=== PATIENT | female | born 1975 | race Caucasian/White ===

== ENCOUNTER 2021-09-02 12:00 | Emergency (ER) | payer OTHER, SELFPAY ==
[2021-09-02 12:10] VITALS: BP 153/109; PULSE 105; RESP 20; TEMP 36.1; O2SAT 100
--- NOTE | 2021-09-02 12:29 | ECG_ITS ---
Measurements Intervals [place] Rate: 82 P: 20 [place]: 140 QRS: -4 QRSD: 98 T: 40 QT: 370 QTc: 434 Interpretive Statements SINUS RHYTHM BORDERLINE R WAVE PROGRESSION, ANTERIOR LEADS BASELINE ARTIFACT- I, III BORDERLINE ECG Electronically Signed On 09-02-2021 13:07:05 [employer] MGR by Jason Park D.O.
--- NOTE | 2021-09-02 12:31 | ED.GENADULT ---
HPI - General Adult General Chief complaint: Dizziness Stated complaint: dizzy spells & falling Source: patient Mode of arrival: ambulatory Limitations: no limitations History of Present Illness HPI narrative: Val is a 46F with a PMH of HTN, and a mood disorder that presented to the ER with near syncope. Over the last month she has had 5 episodes of nearly passing out with the last one being 5 days ago. During all episodes she has stood up from a sitting position and nearly passed out but never done so. She admits nausea but no vomiting. There was no chest pain, SOB, or palpitations. Related Data Home Medications Medication Instructions Recorded Confirmed cetirizine [Zyrtec] 10 mg PO DAILY 10/09/19 09/02/21 losartan-hydrochlorothiazide 1 tablet PO DAILY 10/09/19 09/02/21 sertraline 20 mg PO DAILY 10/09/19 09/02/21 hydrochlorothiazide 12.5 mg PO DAILY 09/02/21 09/02/21 venlafaxine 100 mg PO DAILY 09/02/21 09/02/21 Allergies Allergy/AdvReac Type Severity Reaction Status Date / Time No Known Allergies Allergy Verified 10/09/19 12:41 Review of Systems Constitutional: Constitutional: Reports no additional constitutional complaints Eyes: Eyes: Reports no additional eye complaints ENT: Reports system reviewed and no additional complaints, except as documented Cardiovascular: Cardiovascular: Reports as per HPI Respiratory: Respiratory: Reports no additional respiratory complaints Gastrointestinal: Gastrointestinal: Reports no additional gastrointestinal complaints Genitourinary: Genitourinary: Reports no additional female genitourinary complaints Musculoskeletal: Musculoskeletal: Reports no additional musculoskeletal complaints Integumentary/Breasts: Skin/Breast: Reports system reviewed and no additional complaints, except as docu Neurologic: Reports as per HPI Psychiatric: Psychiatric: Reports no additional psychiatric complaints Endocrine: Endocrine: Reports no additional endocrine complaints Hematologic/Lymphatic: Hematologic/Lymphatic: Reports no additional hematologic/lymphatic complaints Allergic/Immunologic: Allergic/Immunologic: Reports no additional allergic/immunologic complaints Exam Const: General: no acute distress and alert Orientation/consciousness: patient oriented x3 Limitations: No altered mental status HENMT: Head: normal to inspection Other: normocephalic, atraumatic Eyes: Conjunctivae: conjunctivae normal Pupils: Equal, round and reactive pupils present Neck: Neck: normal visual inspection Chest: Chest palpation & inspection: normal inspection of the chest Resp: Effort & Inspection: normal respiratory effort, not labored and not tachypneic Auscultation: clear to auscultation bilaterally Cardio: Rate: regular rate Rhythm: regular rhythm Heart sounds: no murmurs Skin: General skin exam: normal color Rashes: no rashes Neuro: General: patient oriented x3, moves all extremities and no focal motor deficits Other: 3 beats of nystagmus to the right. Normal finger to nose and rapid alternating movements. Normal head impulse and test of skew tests Extrem: General: normal to inspection Psych: Appearance: grossly normal Mental Status: mental status grossly normal Course Course Emergency Course: Ordered labs and EKG Labs and EKG unremarkable Stark Syncope Risk score: -3 Very low risk [place] syncope score: low risk group She was discharged home to follow up with her PCP. Vital Signs Vital signs: Vital Signs Temperature 96.9 F L 09/02/21 12:10 Pulse Rate 105 H 09/02/21 12:10 Respiratory Rate 20 09/02/21 12:10 Blood Pressure 153/109 H 09/02/21 12:10 Pulse Oximetry 100 09/02/21 12:10 Temperature 96.9 F L 09/02/21 12:10 Pulse Rate 105 H 09/02/21 12:10 Respiratory Rate 20 09/02/21 12:10 Blood Pressure 153/109 H 09/02/21 12:10 Pulse Oximetry 100 09/02/21 12:10 Medical Decision Making Vital Signs Vital Signs: Vital Sig
[2021-09-02 12:49] LABS: Basophils Absolute Auto 0.06 K/mm3 (0.00-0.10); Basophils Percent Auto 0.9 % (0.0-1.0); Eosinophils Absolute Auto 0.14 K/mm3 (0.02-0.50); Eosinophils Percent Auto 2.2 % (1.0-6.0); Hematocrit 44.1 % (35.0-49.0); Hemoglobin 14.3 g/dL (12.0-15.0); Immature Granulocyte Absolute 0.01 K/mm3 (0.00-0.00); Immature Granulocyte Percent A 0.2 % (0.0-0.0); Lymphocytes Absolute Auto 3.23 K/mm3 (1.10-4.50); Lymphocytes Percent Auto 50.1 % (18.0-42.0); Mean Corpuscular HGB Conc 32.4 g/dL (32.0-36.0); Mean Corpuscular Hemoglobin 28.1 pg (27.0-31.0); Mean Corpuscular Volume 86.8 fL (78.0-102.0); Monocytes Absolute Auto 0.48 K/mm3 (0.10-0.90); Monocytes Percent Auto 7.4 % (2.0-11.0); Neutrophils Absolute Auto 2.5 K/mm3 (1.7-7.2); Neutrophils Percent Auto 39.2 % (50.0-70.0); Platelet Count Result 311 K/mm3 (150-420); Red Blood Count 5.08 M/mm3 (4.20-5.40); Red Cell Distribution Width 13.4 % (11.6-14.4); White Blood Count 6.5 K/mm3 (4.8-10.8)
[2021-09-02 12:50] VITALS: BP 151/98; PULSE 88
[2021-09-02 12:55] VITALS: BP 153/107; PULSE 113
[2021-09-02 13:14] LABS: Amphetamine Screen Urine Negative (Negative); Barbiturate Screen Urine Negative (Negative); Benzodiazepines Screen Urine Negative (Negative); Cannabinoid Screen Urine Negative (Negative); Cocaine Screen Urine Negative (Negative); Methadone Screen Urine Negative (Negative); Opiate Screen Urine Negative (Negative); Phencyclidine Screen Urine Negative (Negative)
[2021-09-02 13:15] LABS: Anion Gap 12 mmol/L (8-16); Blood Urea Nitrogen 14 mg/dL (7-18); Calcium 8.5 mg/dL (8.5-10.1); Carbon Dioxide 27 mmol/L (21-32); Chloride 101 mmol/L (98-108); Estimated CRCL calculation 94 ml/min; Estimated Glomerular Filt Rate > 60; Glucose 101 mg/dL (70-99); NT Pro B Type Natriuretic Pept 16 pg/mL (0-125); Osmolality Calculated 290 mOsm/kg (285-295); Potassium 3.7 mmol/L (3.5-5.1); Sodium 140 mmol/L (136-145)
[2021-09-02 13:18] LABS: Thyroid Stimulating Hormone 1.48 uIU/mL (0.36-3.74); Troponin I 4.9 ng/L (0.00-60.4)
[2021-09-02 13:40] VITALS: BP 151/98; PULSE 88; RESP 20; TEMP 37.1; O2SAT 98
== END 2021-09-02 13:40 | disposition home or self-care (01) ==
PROVIDERS: Emergency Provider Family Medicine; PCP Family Medicine
DX: R55 Syncope and collapse (principal); I10 Essential (primary) hypertension; Z79.899 Other long term (current) drug therapy
CPT/HCPCS: 36415; 80048; 80307; 83880; 84443; 84484; 85025; 93005; 99282; 99284

== ENCOUNTER 2022-01-25 15:36 | Emergency (ER) | payer BC, SELFPAY ==
--- NOTE | ~2022-01-25 | CT_ITS ---
EXAMINATION: CT brain wo con DATE: 01/25/2022 17:03 INDICATION: dizziness, HEADACHE, SYNCOPAL EPISODE, HAS KNOWN BRAIN CYST TECHNIQUE: Computed tomography (CT) of the head was performed without intravenous contrast. The mA wa s adjusted according to patient size. Iterative reconstruction technique was employed. The dose-lengt h product was 605.33 mGy-cm. COMPARISON: 11/13/15 FINDINGS: No acute intracranial hemorrhage or extra-axial fluid collection. No hydrocephalus. The right frontal arachnoid cyst is considerably larger, now measuring 7.6 cm x 6.8 cm x 6.4 cm, causing increased midline shift to the left and mass effect on both the right and left lateral ventricles and frontal horns. No vasogenic edema within the brain parenchyma. No acute ischemic infarct. Unremarkable dural venous sinus attenuation. No acute osseous abnormality. Trace left mastoid effusion, otherwise the aerated spaces are clear. IMPRESSION: No acute intracranial process. Enlarging right frontal arachnoid cyst, with increased midline shift a nd local mass effect. Reviewed, dictated and finalized at location K. IMPRESSION: No acute intracranial process. Enlarging right frontal arachnoid cyst, with inc reased midline shift and local mass effect.
--- NOTE | ~2022-01-25 | XR_ITS ---
EXAMINATION: XR chest 1V portable Exam Date/Time: 01/25/2022 16:40 CDT CLINICAL HISTORY: dizziness,RECENT SYNCOPAL EPISODES,TIRED,POOR APPETITE Comparison: None available. RESULT: Lines, tubes, and devices: None. Lungs and pleura: Clear. Cardiomediastinal silhouette: Aortic ectasia, otherwise normal cardiomediastinal silhouette. Other: No acute osseous or upper abdominal finding. IMPRESSION: No acute cardiopulmonary process Reviewed, dictated and finalized at location K.
[2022-01-25 15:41] VITALS: BP 158/112; PULSE 112; RESP 15; TEMP 36.8; O2SAT 97
[2022-01-25 15:45] VITALS: BP 168/122; PULSE 114; RESP 26; O2SAT 99
--- NOTE | 2022-01-25 15:53 | ECG_ITS ---
Measurements Intervals [place] Rate: 116 P: 26 [place]: 112 QRS: -24 QRSD: 105 T: 23 QT: 338 QTc: 471 Interpretive Statements SINUS TACHYCARDIA WITH SHORT CA INTERVAL POOR R WAVE PROGRESSION, ANTERIOR LEADS INFERIOR INFARCT, AGE INDETERMINATE ABNORMAL ECG Electronically Signed On 01-25-2022 16:52:22 CDT by Jason Park D.O.
[2022-01-25 15:59] LABS: Basophils Percent Auto 0.4 % (0.2-1.2); Eosinophils Percent Auto 0.3 % (0-4.4); Hematocrit 48.2 % (37.0-47.0); Hemoglobin 15.7 g/dL (12.0-15.0); Immature Granulocyte Absolute 0.02 K/mm3 (0.00-0.031); Immature Granulocyte Percent A 0.2 % (0-0.5); Lymphocytes Absolute Auto 2.71 K/mm3 (0.9-3.2); Mean Corpuscular HGB Conc 32.6 g/dl (32-36); Mean Corpuscular Hemoglobin 27.8 pg (26-34); Mean Corpuscular Volume 85.3 fl (80-100); Mean Platelet Volume 9.5 fl (7.4-10.4); Monocytes Absolute Auto 0.6 K/mm3 (0.1-0.6); Monocytes Percent Auto 6.5 % (2.6-8.5); Neutrophils Absolute Auto 5.7 K/mm3 (1.3-6.7); Neutrophils Percent Auto 62.6 % (45.5-73.1); Platelet Count Result 323 k/mm3 (150-375); Red Blood Count 5.65 M/mm3 (4.2-5.4); Red Cell Distribution Width 14.7 % (11.5-14.5)
[2022-01-25 16:10] LABS: Alanine Aminotransferase 34 U/L (4-35); Albumin Level 4.3 g/dL (3.5-5.1); Alkaline Phosphatase 50 U/L (38-126); Anion Gap 8 mmol/L (8-16); Aspartate Amino Transferase 38 U/L (14-36); Bilirubin,Total 0.7 mg/dL (0.2-1.3); Blood Urea Nitrogen 13 mg/dL (7-17); Calcium 8.9 mg/dL (8.4-10.2); Carbon Dioxide 25 mmol/L (22-30); Chloride 101 mmol/L (98-107); Estimated CRCL calculation 97 ml/min; Estimated Glomerular Filt Rate > 60; Glucose 111 mg/dL (65-110); Potassium 3.9 mmol/L (3.4-5.0); Sodium 134 mmol/L (137-145)
[2022-01-25 16:13] LABS: INR 1.1; Partial Thromboplastin Time 27.8 SECONDS (22.3-36.8); Prothrombin Time 13.7 Seconds (11.1-14.7)
[2022-01-25 16:45] VITALS: BP 137/106; PULSE 100; RESP 23; O2SAT 100
[2022-01-25 17:27] LABS: D Dimer 0.34 ug/mL (<0.48)
--- NOTE | 2022-01-25 17:34 | ED.DIZZY ---
HPI - Dizziness General Chief Complaint: Dizziness Stated Complaint: Syncopal Episodes Time Seen by Provider: 01/25/22 16:13 Source: RN notes reviewed History of Present Illness HPI Narrative: Patient presents emergency department from home for dizziness. Patient states that she was walking today when she suddenly became very dizzy states that for like the room was spinning felt she is going to pass out at that time she had to lay down on the ground but did not lose consciousness. She states dizziness is improved at this time while sitting but is worsened with getting up and ambulating she denies any numbness or tingling to the extremities she denies any fevers or chills chest pain shortness of breath abdominal pain nausea vomiting or any other symptoms. States she does have a history of an arachnoid cyst that was diagnosed when she lived in [place] but has not had any follow-up Related Data Home Medications Medication Instructions Recorded Confirmed losartan-hydrochlorothiazide 1 tablet PO DAILY 10/09/19 09/02/21 venlafaxine 100 mg PO DAILY 09/02/21 09/02/21 Allergies Allergy/AdvReac Type Severity Reaction Status Date / Time No Known Allergies Allergy Verified 01/25/22 16:04 Review of Systems Review of Systems: Gen.: Denies fevers or chills Eyes: Denies eye pain or visual change ENT: Denies congestion Respiratory: Denies shortness of breath or cough CV: Denies chest pain or palpitations GI: Denies abdominal pain nausea, emesis or diarrhea Musculoskeletal: Denies back pain or muscle pain Neuro: See HPI Skin: Denies rash Except as documented, all other systems reviewed and negative [facility] Past Medical History Medical History (Updated 01/25/22 @ 17:36 by Chuy Rodriguez DO) Arachnoid cyst Social History Social History (Updated 01/25/22 @ 17:35 by Chuy Rodriguez DO) Smoking status: Never smoker Exam Narrative: APPEARANCE: No acute distress, nontoxic, resting in bed HEENT: Normocephalic, atraumatic, OMM, TMs clear bilaterally EYES: PERRL, EOMI NECK: Supple, nontender, full range of motion without pain, no meningismus RESPIRATORY: No respiratory distress, clear to auscultation bilaterally with no rhonchi wheezing or rales CARDIOVASCULAR: RRR s murmur ABDOMINAL: Soft, nontender, nondistended MUSCULOSKELETAL: Moves all extremities. No clubbing, cyanosis or edema. NEURO: A and O ?3, following commands, speech normal, no facial t,muscle strength 5 out of 5 bilateral upper and lower extremities SKIN:: Warm, dry. Normal Color PSYCHIATRIC: Normal affect/mood Course Course Emergency Course: Discussed with patient arachnoid cyst she says diagnosed when she lived in [place] and she is had no follow-up patient had imaging in 2019 that shows increasing size since then Called discussed with neurosurgery at [facility] recommend transfer to the ER Patient accepted at [facility] by Dr. Marte Vital Signs Vital signs: Vital Signs Temperature 98.2 F 01/25/22 15:41 Pulse Rate 112 H 01/25/22 15:41 Respiratory Rate 15 01/25/22 15:41 Blood Pressure 158/112 H 01/25/22 15:41 Pulse Oximetry 97 01/25/22 15:41 Temperature 98.2 F 01/25/22 15:41 Pulse Rate 104 H 01/25/22 17:58 Respiratory Rate 24 H 01/25/22 17:58 Blood Pressure 159/105 H 01/25/22 17:58 Pulse Oximetry 99 01/25/22 17:58 MDM - Dizziness Lab Data Result diagrams: 01/25/22 15:55 01/25/22 15:55 Labs: Lab Results 01/25/22 01/25/22 01/25/22 Range/Units 15:55 15:55 15:55 WBC 9.0 (4.5-10.0) K/mm3 RBC 5.65 H (4.2-5.4) M/mm3 Hgb 15.7 H (12.0-15.0) g/dL Hct 48.2 H (37.0-47.0) % MCV 85.3 (80-100) fl MCH 27.8 (26-34) pg MCHC 32.6 (32-36) g/dl RDW 14.7 H (11.5-14.5) % Plt Count 323 (150-375) k/mm3 MPV 9.5 (7.4-10.4) fl Immature Gran % (Auto) 0.2 (0-0.5) % Neut % (Auto) 62.6 (45.5-73.1) % Lym
[2022-01-25 17:35] LABS: Troponin I < 0.012 ng/mL (0.000-0.034)
--- NOTE | 2022-01-25 17:40 | PC.NURSE ---
house sup notified of bls transfer to [facility] evon eta 1hr
[2022-01-25] MEDS: SODIUM CHLORIDE 0.9% IV 1,000 ML 999 ML IV CONT (17:45)
[2022-01-25 17:58] VITALS: BP 159/105; PULSE 104; RESP 24; O2SAT 99
[2022-01-25 18:31] VITALS: BP 142/102; PULSE 92; RESP 24; O2SAT 98
== END 2022-01-25 19:25 | disposition short-term general hospital (02) ==
PROVIDERS: Emergency Provider Emergency Medicine; PCP Family Medicine
DX: G93.0 Cerebral cysts (principal); R42 Dizziness and giddiness
CPT/HCPCS: 36415; 70450; 71045; 80053; 84484; 85025; 85380; 85610; 85730; 93005; 96360; 99285; J7030

== ENCOUNTER 2022-02-04 14:39 | Emergency (ER) | payer BC, SELFPAY ==
--- NOTE | ~2022-02-04 | XR_ITS ---
EXAMINATION: XR chest 2V DATE: 02/04/2022 15:18 INDICATION: Midsternal chest pain TECHNIQUE: PA and lateral views of the chest are obtained. COMPARISON: 01/25/2022 FINDINGS: The lungs are free of acute opacities. There is no pleural effusion or pneumothorax. The ca rdiomediastinal silhouette is normal. There is mild thoracic spondylosis. IMPRESSION: 1. No acute cardiopulmonary abnormality. Reviewed, dictated and finalized at location A.
--- NOTE | 2022-02-04 14:40 | ECG_ITS ---
Measurements Intervals [place] Rate: 116 P: 31 [place]: 137 QRS: -23 QRSD: 97 T: 41 QT: 322 QTc: 449 Interpretive Statements SINUS TACHYCARDIA BORDERLINE R WAVE PROGRESSION, ANTERIOR LEADS INFERIOR INFARCT, AGE INDETERMINATE ABNORMAL ECG Electronically Signed On 02-04-2022 14:50:22 CDT by Jason Park D.O.
[2022-02-04 14:48] VITALS: BP 147/107; PULSE 135; RESP 17; TEMP 36.6; O2SAT 97
[2022-02-04 14:59] LABS: Basophils Absolute Auto 0.1 K/mm3 (0.0-0.1); Basophils Percent Auto 0.6 % (0.2-1.2); Eosinophils Absolute Auto 0.1 K/mm3 (0-0.3); Hematocrit 45.7 % (37.0-47.0); Hemoglobin 14.6 g/dL (12.0-15.0); Immature Granulocyte Absolute 0.02 K/mm3 (0.00-0.031); Immature Granulocyte Percent A 0.2 % (0-0.5); Lymphocytes Absolute Auto 4.61 K/mm3 (0.9-3.2); Lymphocytes Percent Auto 49.8 % (18.3-44.2); Mean Corpuscular HGB Conc 31.9 g/dl (32-36); Mean Corpuscular Hemoglobin 27.3 pg (26-34); Mean Corpuscular Volume 85.6 fl (80-100); Mean Platelet Volume 9.7 fl (7.4-10.4); Monocytes Absolute Auto 0.6 K/mm3 (0.1-0.6); Monocytes Percent Auto 6.8 % (2.6-8.5); Neutrophils Absolute Auto 3.9 K/mm3 (1.3-6.7); Neutrophils Percent Auto 41.6 % (45.5-73.1); Platelet Count Result 326 k/mm3 (150-375); Red Blood Count 5.34 M/mm3 (4.2-5.4); White Blood Count 9.3 K/mm3 (4.5-10.0)
[2022-02-04 15:17] LABS: Alanine Aminotransferase 50 U/L (6-35); Albumin Level 4.5 g/dL (3.5-5.1); Alkaline Phosphatase 55 U/L (38-126); Anion Gap 8 mmol/L (8-16); Aspartate Amino Transferase 53 U/L (14-36); Bilirubin,Total 0.5 mg/dL (0.2-1.3); Blood Urea Nitrogen 11 mg/dL (7-17); Calcium 8.7 mg/dL (8.4-10.2); Carbon Dioxide 27 mmol/L (22-30); Chloride 100 mmol/L (98-107); Estimated CRCL calculation 96 ml/min; Estimated Glomerular Filt Rate > 60; Glucose 109 mg/dL (65-110); Lipase 55 U/L (23-300); Potassium 3.3 mmol/L (3.4-5.0); Sodium 135 mmol/L (137-145)
[2022-02-04 15:20] LABS: Prothrombin Time 13.1 Seconds (11.1-14.7)
[2022-02-04 15:21] LABS: Partial Thromboplastin Time 26.8 SECONDS (22.3-36.8)
[2022-02-04 15:29] LABS: Troponin I < 0.012 ng/mL (0.000-0.034)
[2022-02-04 15:30] VITALS: BP 142/116; PULSE 117; RESP 18; O2SAT 98
[2022-02-04 15:31] VITALS: BP 142/116; PULSE 113; RESP 24
[2022-02-04 15:32] VITALS: PULSE 117; RESP 26
--- NOTE | 2022-02-04 16:22 | ED.CHESTPAIN ---
HPI - Chest Pain General Chief Complaint: Chest Pain Stated Complaint: CP Time Seen by Provider: 02/04/22 16:18 Source: patient, RN notes reviewed and old records reviewed Mode of arrival: ambulatory Limitations: no limitations History of Present Illness HPI narrative: Patient is 47 years old white female came to the emergency room with intermittent central chest pain started last night, at rest, last up to 2 hours then go away. Patient denies aggravating or relieving factors. History of depression used to be on Effexor which is stopped 48 hours ago and started on sertraline. Patient quit smoking 1 week ago. Patient had arachnoid cyst removed January 27 and got discharged from the hospital 5 days ago. Patient feels he cannot take deep breath. Have trouble sleeping and severely anxious and depressed lately. She denies any fever, chills, nausea, vomiting, diarrhea, constipation, or headache History of hypertension, and depression. No family history of coronary artery disease Related Data Home Medications Medication Instructions Recorded Confirmed hydrochlorothiazide 02/04/22 hydrocodone-acetaminophen tablet 02/04/22 levetiracetam PO 02/04/22 losartan 02/04/22 ondansetron 02/04/22 sertraline mg 02/04/22 02/04/22 Allergies Allergy/AdvReac Type Severity Reaction Status Date / Time No Known Allergies Allergy Verified 02/04/22 14:51 Review of Systems Review of Systems: All systems reviewed & are unremarkable except as noted in HPI and below PMFSH Past Medical History Medical History Arachnoid cyst Social History Social History Smoking status: Never smoker Exam Narrative: General appearance: Well-developed, well-nourished Skin: Normal color Head: Multiple newton across the forehead status post craniotomy Eyes: Clear conjunctiva ENT: Oropharynx normal, ears normal, nose normal Neck: Supple, nontender Chest and respiratory: Airway patent, no respiratory distress, no accessory muscle use diffuse chest tenderness including depressed, patient reports that she is about to get her menstrual cycle no bruises, no swelling, no mass, no rash Heart: Regular rate/rhythm Abdomen: Soft, nontender, no organomegaly, quiet bowel sounds Vascular: Normal peripheral pulses, normal capillary refill. Musculoskeletal: Normal range of motion, nontender back Neurologic: Alert and oriented ?3, INPATIENT CODER is normal as tested, no gross motor deficit Course Course Emergency Course: Work-up did not show any significant finding to explain patient condition. Anxiety related symptoms is my concern. Vital Signs Vital signs: Vital Signs Temperature 36.6 C 02/04/22 14:48 Pulse Rate 135 H 02/04/22 14:48 Respiratory Rate 17 02/04/22 14:48 Blood Pressure 147/107 H 02/04/22 14:48 Pulse Oximetry 97 02/04/22 14:48 Temperature 36.6 C 02/04/22 14:48 Pulse Rate 89 02/04/22 17:57 Respiratory Rate 18 02/04/22 17:57 Blood Pressure 139/99 H 02/04/22 16:47 Pulse Oximetry 98 02/04/22 17:57 MDM - Chest Pain Lab Data Result diagrams: 02/04/22 14:54 02/04/22 14:54 Labs: Lab Results 02/04/22 02/04/22 02/04/22 Range/Units 14:53 14:54 14:54 WBC 9.3 (4.5-10.0) K/mm3 RBC 5.34 (4.2-5.4) M/mm3 Hgb 14.6 (12.0-15.0) g/dL Hct 45.7 (37.0-47.0) % MCV 85.6 (80-100) fl MCH 27.3 (26-34) pg MCHC 31.9 L (32-36) g/dl RDW 14.0 (11.5-14.5) % Plt Count 326 (150-375) k/mm3 MPV 9.7 (7.4-10.4) fl Immature Gran % (Auto) 0.2 (0-0.5) % Neut % (Auto) 41.6 L (45.5-73.1) %
[2022-02-04 16:45] LABS: D Dimer 0.39 ug/mL (<0.48)
[2022-02-04 16:47] VITALS: BP 139/99; PULSE 79; RESP 18; O2SAT 98
--- NOTE | 2022-02-04 17:50 | PC.NURSE ---
Sister, Hopkins [phone]
[2022-02-04 17:57] VITALS: PULSE 89; RESP 18; O2SAT 98
[2022-02-04 18:22] LABS: Troponin I < 0.012 ng/mL (0.000-0.034)
== END 2022-02-04 22:58 | disposition home or self-care (01) ==
PROVIDERS: Emergency Provider Emergency Medicine; PCP Family Medicine
DX: F41.9 Anxiety disorder, unspecified (principal); F32.9 Major depressive disorder, single episode, unspecified; Z79.891 Long term (current) use of opiate analgesic; Z98.890 Other specified postprocedural states
CPT/HCPCS: 36415; 71046; 80053; 83690; 84484; 85025; 85380; 85610; 85730; 93005; 99284

== ENCOUNTER 2022-03-19 15:30 | Outpatient (RCR) | payer BC, SELFPAY ==
--- NOTE | 2022-02-18 09:41 | OTOPEVAL ---
OCCUPATIONAL THERAPY INITIAL EVALUATION REPORT AND DISCHARGE SUMMARY 02/18/22 Patient referred to outpatient OT s/p arachnoid cyst drainage 01/27/22. At this time she is functioning independently with ADLs, has intact and symmetrical UE strength, and intact and symmetrical functional coordination. No further skilled OT is indicated at this time. Thank you for referring Val Sanchez to [facility]. Please review, sign, date and return this D/C Note SHAYY. I agree with and certify that the following plan of care is medically necessary. Referring Physician Date Referring Provider: Shadi Fleming MD *OT Outpatient Evaluation Start: 02/18/22 08:35 Therapy Assessment Status Assessment Status Assessment Status Evaluation Outpatient Past Medical History Past Medical History Source of Past Medical History Recalled from Previous Visit, Confirmed with Patient/Family Neurological History Hx Neurologic Surgery Yes: 01/27/22 brain cyst drainage Hx Seizures Yes Cardiovascular History Hx Hypertension Yes Musculoskeletal History Hx Back Injury Yes Reproductive History Hx Tubal Ligation Yes Psychosocial History Hx Anxiety Yes Hx Depression Yes Evaluation Information Problem Diagnosis Deconditioning s/p arachnoid cyst Onset 01/27/22 Subjective Information Patient states she had a cyst Query Text:As Reported By Patient/ in her brain that was causing Family progressive LE weakness, seizures, and cognitive/ emotional changes. She had the cyst drained ~3 weeks ago. She discharged home from the hospital with her 2 kids. She reports her biggest deficits are dizziness and her balance that restrict her ability to do stairs and carry laundry. Prior Level of Function Activity Level (Last 3 Months) Activity of Daily Living Ability Independent Indoor/Home Mobility Independent Community Mobility Independent Stairs Ability Independent Functional Cognition (Planning, Shopping Independent , Taking Medications) Cooking Yes Cleaning Yes Laundry Yes Home Setting Home Type Condo/Duplex/Townhouse, Multiple Levels Environmental Barriers Railing, Ascend Right,Stairs, Greater than 4 Living Situation With Adult Child Mobility Assistive Devices (Used Last 3 None,Walker, Wh
--- NOTE | 2022-02-18 11:33 | PTOPEVAL ---
PHYSICAL THERAPY INITIAL EVALUATION. Thank you for referring Val Sanchez to [facility].? The patient is scheduled to be seen for therapy? 2x/week for 4 weeks. Please review, sign, date and return this plan of care SHAYY. I agree with and certify that the following plan of care is medically necessary. Referring Physician Date Attending Provider: Shadi Fleming MD *PT Outpatient Evaluation Start: 02/18/22 Evaluation Information Diagnosis Deconditioning s/p arachnoid cyst Onset 01/27/22 Subjective Information Pt had a arachnoid cyst Query Text:As Reported By Patient/ removed on 01/27/22. She states Family some of her balance deficits are due to the seizure medication she is on. She states her biggest concerns is balance and dizziness, she states she had this before the surgery but it has progressively gotten worse since. She has some dizziness that turned out to be seizures but states she has 2 different types of dizziness. She is unsure if this is vertigo or not. She states occasionally her legs feel really weak. She does has a history of low back pain. Pt states she walks intermittently without her walker at home, she has been able to walk around the store with her walker but is completely exhausted after this. Pt states she is pretty inactive at baseline due to chronic depression. Pain Assessment Self Report Pain Assessment Head, Frontal Reported Pain Level 2 Lower Extremity Range of Motion General Lower Extremity Range of Motion WFL/Left,WFL/Right Lower Extremity Muscle Strength Testing General Lower Extremity Strength WFL/Left,WFL/Right Gross Lower Extremity Strength BLE grossly 4/5 - unable to formally test hip abductors, extensors due to inability to lay flat or lay supine Balance Assessment Bernstein Balance Assessment BERNSTEIN Balance Evaluation Total Score (/56 Comments R tandem stance 6s L tandem stance 10
--- NOTE | 2022-03-03 10:07 | PCPTNOTE ---
Patient called & cancelled scheduled appointment this date due to no ride.
--- NOTE | 2022-03-10 09:35 | PCPTNOTE ---
Patient called & cancelled scheduled appointment this date due to no transportation.
--- NOTE | 2022-03-19 15:59 | PTOPEVAL ---
*PT Outpatient Evaluation Start: 02/18/22 Lower Extremity Muscle Strength Testing Reason Not Measured WFL/Left,WFL/Right Gross Lower Extremity Strength BLE grossly 4+/5 to 5/5 - unable to formally test hip abductors, extensors due to inability to lay flat or lay supine Balance Assessment BERNSTEIN Balance Evaluation Total Score 49/56 Comments BERNSTEIN score initially R tandem stance 30s - test stopped L tandem stance 30s - test stopped R single leg stance <3 L single leg stance <2 Time Up Go (TUG) Comments Initially: 24s w/o AD 03/19/22: 10s w/o AD 5 Time Sit to Stand 5 Time Sit to Stand Comments Initially: 20s, without the Query Text:Normative Data: If Greater use of UEs Than 15 Seconds, 74% Increase Risk for 03/19/22: 13s, without the use Recurrent Falls of UEs Gait Assessment Ambulation Assistive Devices None 2 Minute Walk Total Distance Walked (feet) 475 2 Minute Walk Gait Speed Score (feet/sec) 3.95 2 Minute Walk Test Comments Initially: 220ft with rollator 03/19/22: 475ft without AD
--- NOTE | 2022-03-19 16:13 | PTOPEVAL ---
PHYSICAL THERAPY PROGRESS REPORT AND DISCHARGE SUMMARY. Thank you for referring Val Sanchez to [facility].? The patient is to be discharged from skilled physical therapy services at this time. Please review, sign, date and return this plan of care SHAYY. I agree with and certify that the following plan of care is medically necessary. Referring Physician Date Attending Provider: Rebecca Garza Evaluation Information Diagnosis Deconditioning s/p arachnoid cyst Onset 01/27/22 Subjective Information Pt states she is doing well, Query Text:As Reported By Patient/ she has increased her activity Family at home but is still trying to find the her limit. Shes states she does her exercises daily, rides the bike 1-2x/day , and has started doing more chores around the house. She reports only using the cane in the community, and particularly d/t her dizziness . She reports having a ruptured ear drum. Pain Assessment Pain Score 0: Self Report Lower Extremity Muscle Strength Testing General Lower Extremity Strength WFL/Left,WFL/Right Gross Lower Extremity Strength BLE grossly 4+/5 to 5/5 - unable to formally test hip abductors, extensors due to inability to lay flat or lay supine Balance Assessment Bernstein Balance Assessment BERNSTEIN Balance Evaluation Total Score 49/56 Comments BERNSTEIN score initially R tandem stance 30s - test stopped L tandem stance 30s - test stopped R single leg stance <3 L single leg stance <2 Time Up Go (TUG) Timed Up and Go Test (TUG) (Seconds) 10 Assistive Devices None Comments Initially: 24s w/o AD 03/19/22: 10s w/o AD 5 Time Sit to Stand Time in Seconds 13 5 Time Sit to Stand Comments Initially: 20s, without the Query Text:Normative Data: If Greater use of UEs Than 15 Seconds, 74% Increase Risk for 03/19/22: 13s, without the use Recurrent Falls of UEs Gait Assessment Ambulation Assistive Devices None Other Gait Observations decreased gait speed and increased time to complete turns, no other deviations 2 Minute Walk Total Distance Walked (feet) 475 2 Minute Walk Gait Speed Score (feet/sec) 3.95 2 Minute Walk Test Comments Initially: 220ft with rollator
== END 2022-03-22 08:28 | disposition home or self-care (01) ==
LOC: ANHPT 15:30
PROVIDERS: PCP Family Medicine; Referring Provider Family Medicine; Visit Provider Family Medicine
DX: Z48.89 Encounter for other specified surgical aftercare (principal)
CPT/HCPCS: 97110; 97112; 97116; 97162; 97166; 97530

== ENCOUNTER 2022-09-03 15:30 | Outpatient (CLI) | payer OTHER, BC, SELFPAY ==
[2022-09-03 16:05] LABS: Anion Gap 5 mmol/L (8-16); Blood Urea Nitrogen 17 mg/dL (7-17); Calcium 8.8 mg/dL (8.4-10.2); Carbon Dioxide 30 mmol/L (22-30); Chloride 102 mmol/L (98-107); Estimated Glomerular Filt Rate > 60; Glucose 117 mg/dL (65-110); Potassium 3.6 mmol/L (3.4-5.0); Sodium 137 mmol/L (137-145)
== END 2022-09-03 15:31 | disposition home or self-care (01) ==
PROVIDERS: Anesthesiology; PCP Family Medicine; Visit Provider Obstetrics & Gynecology
DX: Z01.818 Encounter for other preprocedural examination (principal); Z79.899 Other long term (current) drug therapy
CPT/HCPCS: 36415; 80048

== ENCOUNTER 2022-09-07 00:31 | Day surgery (SDC) | payer OTHER, BC, SELFPAY ==
[2022-08-25 13:38] VITALS: BMI 39.4
--- NOTE | 2022-08-25 13:45 | PC.NURSE ---
Report to the Outpatient Waiting Room, entrance under the green pavilion located off [facility], at time 6:00 on date 09/07/22. Planned Procedure Time: 7:30. Time changes happen often and if your time is changed the preop area will call you the afternoon before. - You and your visitor will be asked to self-screen and do not enter if you have any COVID symptoms. - Only one visitor is requested with a max of two and NO children visitors are allowed at this time. - The patient visitor may be requested to leave or wait in car when not with patient due to distancing restrictions. - A mask is optional within the hospital. Patients may have clear liquids (water, carbonated beverages, clear teas, apple juice) until 3 hours prior to surgery (4:30) with a maximum of 20 ounces. - No food from midnight until time of surgery Take the following medications with a SIP of water the morning of surgery: KEPPRA, SERTRALINE Medications to discontinue per physician: VITAMINS Date to take last dose: DO NOT TAKE WEDNESDAY 09/05 DOSE UNTIL AFTER SURGERY Please no make-up, nail amharic, hairspray, perfume, deodorant, or body powder the day of surgery. No jewelry (including any body piercings) or valuables the day of surgery, leave them at home. Please take a shower or bath the night before, or the morning of, surgery with an antibacterial soap. Wear comfortable, loose fitting clothing. - Jewelry must be removed prior to entering the operating room. Rings and piercings that are not removed may be cut off. - The hospital will not accept responsibility for valuables. - Please leave all valuables, including medications, at home the day of surgery. If you are going home after surgery, a licensed catering truck driver must drive you home. - NO public transportation without another adult if you receive anesthesia. - We recommend that an adult stay with you for 24 hours following discharge. - We also recommend that you do not drive, make important decision, drink alcoholic beverages, or take any drugs that were not prescribed by your health care provider for at least 24 hours after your discharge time. Follow any additional instructions given to you from your surgeon. If you or anyone in your household have experienced Covid symptoms in the past week, please notify your surgeon or the nurse liaison at the phone number below for possible testing. Telephone instructions given to PT - LESLEY LIVINGSTON and asked if any additional questions and then verbalized understanding. Patient advised to call surgeon office or pre surgery nurse liaison [phone] if any additional questions.
--- NOTE | 2022-09-06 13:45 | P.PNAN_ITS ---
Anes - Initial Pre Proc Eval Procedure: Operation Date: 09/07/22 07:30 Proposed Procedures p Hysteroscopy, Biopsy of Endometrium, Possible Polypectomy, Elizabeth Endometrial Ablation - Shanae Santos MD Date/Time: 09/06/22 13:45 Surgeon: Shanae Santos MD Pre Op Diagnosis: polyp of corpus uteri, menorrhagia Patient Data Age: 47 Gender: F Height: 1.63 m Weight: 104.33 kg Allergies Allergy/AdvReac Type Severity Reaction Status Date / Time No Known Allergies Allergy Verified 09/07/22 06:54 Home Medications Medication Instructions Recorded Confirmed Type cetirizine 10 mg tablet 10 mg PO DAILY PRN Allergy Symptoms 02/12/22 08/25/22 History fluticasone propionate 50 1 spray intranasal Q12H 02/12/22 08/25/22 History mcg/actuation nasal spray,suspension hydrochlorothiazide 12.5 mg tablet 12.5 mg PO DAILY 02/12/22 08/25/22 History losartan 50 mg tablet 50 mg PO DAILY 02/12/22 08/25/22 History meclizine 25 mg tablet 25 mg PO Q4-6H PRN Motion Sickness 02/12/22 08/25/22 History sertraline 100 mg tablet 100 mg PO DAILY 02/12/22 09/07/22 History levetiracetam 750 mg tablet 750 mg PO BID #60 tabs 08/10/22 09/07/22 Rx ergocalciferol (vitamin D2) 1,250 1,250 mcg PO WEEKLY 08/25/22 08/25/22 History mcg (50,000 unit) capsule (Vitamin D2) Patient hx anesthesia problems: none Family hx anesthesia problems: none Results Review: All pre-operative results and documents have been reviewed as part of the pre- operative evaluation. [facility] Past Medical History Medical History (Updated 09/06/22 @ 13:46 by David Yu MD) Anxiety Arachnoid cyst Depression HTN (hypertension) Obesity HIPOLITO on CPAP Surgical History Surgical History H/O brain surgery Social History Social History Smoking packs per day: 1 Smoking cigarettes per day: 20.0 Years smoked: 12 Smoking pack-years: 12.00 Smoking status: Former smoker Tobacco type: cigarettes Smoking end date: 01/24/22 Alcohol intake: current Alcohol use details: RARE Substance use: never Substance use type: does not use Living arrangements: with roommate(s) Spiritual care concerns: No Anes - Eval Final PreProcedure Day of Procedure 09/06/22 13:45 Patient weight: obese Heart: regular rate and rhythm Lungs: clear to auscultation and normal air movement Airway: Mallampati scale class II Neurological: alert and oriented Last oral intake: >/= 8 hours ASA classification: III Emergent: no Anesthetic plan: proceed Anesthesia type and monitoring: general GIVS and LMA Results Review: All pre-operative results and documents have been reviewed as part of the pre- operative evaluation. Informed Consent: The patient's anesthetic plan and its attendant risks and benefits were discussed with the patient/family/POA. Questions were solicited and answers provided to the satisfaction of the patient/family/POA.
[2022-09-07] MEDS: LACTATED RINGERS 1,000 ML 30 ML IV CONT (06:30)
[2022-09-07] MEDS: ACETAMINOPHEN 500 MG TABLET 1000 MG PO (06:40)
[2022-09-07 06:50] VITALS: BP 122/94; PULSE 70; RESP 14; TEMP 36.3; O2SAT 97
--- NOTE | 2022-09-07 07:12 | WPDHPUPDATE1 ---
History and Physical Update Update Date/Time: 09/07/22 07:12 History and Physical has been reviewed, including an updated exam of the patient. There are NO changes in the patient's condition. Risks, benefits, and alternatives have been discussed and questions answered. Patient agrees to proceed with procedure.
--- NOTE | 2022-09-07 07:19 | PM.IMHP ---
H&P: HPI History of Present Illness Date/Time: 09/07/22 07:19 Chief Complaint: Menorrhagia Narrative: this patient is 39-year-old female with endometrial lesion and severe menorrhagia. We have agreed to perform endometrial ablation and is hysteroscopy D&C with polypectomy. She understands there is risk. She understands injuries may occur as result in hospitalization, more surgery, severe illness. She understands risk of hemorrhage and infection. Review of Systems Review of Systems: All systems reviewed & are unremarkable except as noted in HPI and below Constitutional: Constitutional: Denies chills, Denies fatigue, Denies fever(s) and Denies weakness Eyes: Eyes: Denies blurry vision, Denies change in vision, Denies loss of peripheral vision, Denies loss of vision, Denies other visual disturbances and Denies eye pain ENT: Denies vertigo, Denies dizziness, Denies hearing loss, Denies mouth pain, Denies nasal obstruction, Denies neck mass and Denies neck pain Cardiovascular: Cardiovascular: Denies chest pain, Denies diaphoresis, Denies syncope, Denies leg edema and Denies dyspnea Respiratory: Respiratory: Denies chest congestion, Denies cough, Denies hemoptysis, Denies dyspnea and Denies wheezing Gastrointestinal: Gastrointestinal: Denies abdominal pain, Denies constipation, Denies diarrhea, Denies nausea and Denies vomiting Genitourinary: Genitourinary: Denies hematuria, Denies change in libido, Denies nocturia, Denies genital lesions, Denies flank pain and Denies urinary urgency Musculoskeletal: Musculoskeletal: Denies abnormal gait, Denies back pain, Denies myalgias, Denies arthralgias, Denies joint swelling, Denies muscle weakness and Denies neck pain Integumentary/Breasts: Skin/Breast: Denies swelling, Denies breast pain, Denies breast mass, Denies dry skin, Denies nipple discharge, Denies unusual bruising and Denies jaundice Neurologic: Denies Neuro-related abnormal movements, Denies Abnormal speech present, Denies abnormal gait, Denies behavioral changes, Denies confusion, Denies vertigo, Denies dizziness, Denies syncope, Denies loss of vision, Denies memory loss, Denies convulsions and Denies weakness Psychiatric: Psychiatric: Denies abnormal sleep pattern, Denies behavioral changes, Denies change in libido, Denies confusion, Denies depression, Denies anhedonia and Denies memory loss Endocrine: Endocrine: Reports no additional endocrine complaints, Denies change in libido and Denies fatigue Hematologic/Lymphatic: Hematologic/Lymphatic: Reports no additional hematologic/lymphatic complaints Allergic/Immunologic: Allergic/Immunologic: Reports no additional allergic/immunologic complaints and Denies wheezing PMFSH Past Medical History Medical History (Updated 09/07/22 @ 07:22 by Shanae Santos MD) Anxiety Arachnoid cyst Depression HTN (hypertension) Obesity HIPOLITO on CPAP Surgical History Surgical History H/O brain surgery Social History Social History Smoking packs per day: 1 Smoking cigarettes per day: 20.0 Years smoked: 12 Smoking pack-years: 12.00 Smoking status: Former smoker Tobacco type: cigarettes Smoking end date: 01/24/22 Alcohol intake: current Alcohol use details: RARE Substance use: never Substance use type: does not use Living arrangements: with roommate(s) Spiritual care concerns: No Meds Home Medications and Allergies Home Medications Medication Instructions Recorded Confirmed Type cetirizine 10 mg tablet 10 mg PO DAILY PRN Allergy Symptoms 02/12/22 08/25/22 History fluticasone propionate 50 1 spray intranasal Q12H 02/12/22 08/25/22 History mcg/actuation nasal spray,suspension hydrochlorothiazide 12.5 mg tablet 12.5 mg PO DAILY 02/12/22 08/25/22 History losartan 50 mg tablet 50 mg PO DAILY 02/12/22 08/25/22 History meclizine 25 mg tablet 25 mg PO Q4-6H
[2022-09-07] MEDS: LIDOCAINE HCL 1% PF 30 ML VIAL 10 ML INFILTRATE (07:29)
[2022-09-07 08:15] VITALS: BP 124/86; PULSE 72; RESP 14; O2SAT 100
[2022-09-07 08:35] VITALS: BP 127/85; PULSE 58; RESP 20
--- NOTE | 2022-09-07 08:36 | W.PM.PROC2 ---
Procedure Note - Detailed Date of Procedure 09/07/22 Pre-op Diagnosis polyp of corpus uteri, menorrhagia Post-op Diagnosis Same Procedure Performed endometrial ablation with hysteroscopy d&c, polypectomy Surgeon Shanae Santos MD Anesthesia MAC Indications Severe menorrhagia Findings Normal vulva vagina and cervix. endometrial polyp of 2 cm. Description of Procedure The patient was taken to the operating room. She was prepped and draped in the dorsal lithotomy position after induction of mac anesthesia. A speculum was placed in the vagina. Cervix grasped with a tenaculum. The cervix was dilated to about 1 cm. The hysteroscope was inserted. The above findings were noted. Endometrial curettage was performed with a medium-size curette. All surfaces of the endometrium were affected by the curettage. The specimens were collected and sent to pathology. Measurements were taken of the uterus and cervix. The uterine length was then entered into the hand piece of the Elizabeth device. The device was inserted into the intrauterine cavity. The array of the device was expanded. The balloon cuff was inflated. A good seal was achieved. The energy and safety cycles were initiated and completed. The array was collapsed and the instrument was withdrawn after deflating the balloon cuff. Hysteroscope was reinserted. Above findings were noted. The hysteroscope was removed. The patient tolerated the procedure well. The speculum and tenaculum were removed. She was taken to recovery in stable condition. Sponge lap and needle counts were correct x2. Estimated Blood Loss 15 Pathology Yes Complications No immediate complications Condition Stable Disposition Same day
[2022-09-07] MEDS: oxyCODONE HCL (*CRX) 5 MG TAB IR PO (08:37)
[2022-09-07 09:10] VITALS: BP 123/88; PULSE 57; RESP 20
== END 2022-09-07 09:12 | disposition home or self-care (01) ==
PROVIDERS: PCP Family Medicine; Visit Provider Obstetrics & Gynecology
PROC: 0U5B8ZZ Destruction of Endometrium, Via Natural or Artificial Opening Endoscopic (ICD-10-PCS; CPT 58563; principal; 2022-09-07 07:30)
DX: N92.0 Excessive and frequent menstruation with regular cycle (principal); N84.0 Polyp of corpus uteri; I10 Essential (primary) hypertension; G47.33 Obstructive sleep apnea (adult) (pediatric); F41.8 Other specified anxiety disorders; F32.A Depression, unspecified; E66.9 Obesity, unspecified; Z68.37 Body mass index [BMI] 37.0-37.9, adult; Z87.891 Personal history of nicotine dependence
CPT/HCPCS: 58563; 36415; 80048; 88305; A9270; J2250; J2704; J3010; J7030; J7120

== ENCOUNTER 2022-12-29 13:17 | Emergency (ER) | payer OTHER, SELFPAY ==
--- NOTE | ~2022-12-29 | US_ITS ---
EXAMINATION: US pelvic complete w TV DATE: 12/29/2022 15:47 INDICATION: Left ovarian cyst. Left lower quadrant abdominal pain. TECHNIQUE: Multiple transabdominal and transvaginal sonographic images of the pelvis were obtained. COMPARISON: CT abdomen and pelvis 12/29/2022 FINDINGS: TRANSABDOMINAL ULTRASOUND: The uterus measures 9.0 x 4.9 x 5.6 cm. There is no free fluid in the pelvis. TRANSVAGINAL ULTRASOUND: The endometrial complex measures 12 mm in thickness. The right ovary measures 3.0 x 1.2 x 1.3 cm. The left ovary measures 5.6 x 3.7 x 3.4 cm. There are 3.5 and 3.2 cm cysts in left ovary. There is vascu lar flow in the ovaries. IMPRESSION: 1. 3.5 cm and 3.2 cm cyst in left ovary, likely follicular cysts. Reviewed, dictated and finalized at location A.
--- NOTE | ~2022-12-29 | CT_ITS ---
EXAMINATION: CT abdomen pelvis w con DATE: 12/29/2022 14:42 INDICATION: Left lower quadrant abdominal pain. Left flank pain. TECHNIQUE: Computed tomography (CT) of the abdomen and pelvis was performed with 100 mL Omnipaque 350 intravenous contrast. Automated exposure control and iterative reconstruction technique were employe d. The dose-length product was 1082.70 mGy-cm. COMPARISON: None. FINDINGS: The visualized portions of the lung bases demonstrate mild atelectasis. No pleural effusion . The heart size is normal. No pericardial effusion. There is diffuse hepatic steatosis. The gallblad darryl, spleen, pancreas, and adrenal glands are normal. There are cysts in the kidneys measuring up to 5.5 cm on the right. There is a 4.3 cm cyst in left ovary, likely a follicular cyst. There is diverti culosis of the colon without evidence of diverticulitis. There is a large volume of stool in the colo n. The appendix is normal. There are no pathologically enlarged lymph nodes. There is no free intrape ritoneal fluid. There is moderate lumbar spondylosis and mild thoracic spondylosis. IMPRESSION: 1. 4.3 cm cyst in left ovary, likely a follicular cyst. Reviewed, dictated and finalized at location A.
[2022-12-29 13:34] VITALS: BP 152/99; PULSE 100; RESP 18; TEMP 36.6; O2SAT 98
[2022-12-29 13:55] LABS: Basophils Absolute Auto 0.1 K/mm3 (0.0-0.1); Basophils Percent Auto 1.1 % (0.2-1.2); Eosinophils Absolute Auto 0.2 K/mm3 (0-0.3); Eosinophils Percent Auto 2.9 % (0-4.4); Hematocrit 41.4 % (37.0-47.0); Hemoglobin 13.5 g/dL (12.0-15.0); Immature Granulocyte Absolute 0.02 K/mm3 (0.00-0.031); Immature Granulocyte Percent A 0.2 % (0-0.5); Lymphocytes Absolute Auto 3.73 K/mm3 (0.9-3.2); Lymphocytes Percent Auto 44.5 % (18.3-44.2); Mean Corpuscular HGB Conc 32.6 g/dl (32-36); Mean Corpuscular Hemoglobin 27.8 pg (26-34); Mean Corpuscular Volume 85.4 fl (80-100); Monocytes Absolute Auto 0.6 K/mm3 (0.1-0.6); Monocytes Percent Auto 6.9 % (2.6-8.5); Neutrophils Absolute Auto 3.7 K/mm3 (1.3-6.7); Neutrophils Percent Auto 44.4 % (45.5-73.1); Platelet Count Result 285 k/mm3 (150-375); Red Blood Count 4.85 M/mm3 (4.2-5.4); Red Cell Distribution Width 13.8 % (11.5-14.5); White Blood Count 8.4 K/mm3 (4.5-10.0)
[2022-12-29 14:01] LABS: Appearance Urine Clear (Clear); Bacteria Urine None Seen /hpf; Bilirubin Urine Negative (Negative); Blood Urine Negative (Negative); Color Urine Yellow (Yellow); Glucose Urine UA Negative (Negative); Ketones Urine Negative (Negative); Leukocyte Esterase Ur Trace LEU/UL (Negative); Nitrate Urine Negative (Negative); Non Pathogenic Casts 0-2; Protein Urine Negative (Negative); RBC Urine 0-2 /hpf (0-2); Specific Grav Ur 1.019 (1.001-1.035); Squamous Epithelial Cell Urine Occasional /hpf (Few); Urobilinogen Urine 0.2 mg/dL (<2.0); WBC Urine 0-5 /hpf
[2022-12-29 14:05] LABS: Alanine Aminotransferase 26 U/L (6-35); Albumin Level 4.4 g/dL (3.5-5.1); Alkaline Phosphatase 46 U/L (38-126); Anion Gap 5 mmol/L (8-16); Aspartate Amino Transferase 28 U/L (14-36); Bilirubin,Total 0.5 mg/dL (0.2-1.3); Blood Urea Nitrogen 17 mg/dL (7-17); Calcium 8.8 mg/dL (8.4-10.2); Carbon Dioxide 30 mmol/L (22-30); Chloride 102 mmol/L (98-107); Estimated CRCL calculation 88 ml/min; Estimated Glomerular Filt Rate > 60; Glucose 108 mg/dL (65-110); Lipase 75 U/L (23-300); Potassium 3.5 mmol/L (3.4-5.0); Sodium 137 mmol/L (137-145)
[2022-12-29 14:16] LABS: Add Urine Microscopic? YES
--- NOTE | 2022-12-29 14:29 | ED.ABDPAIN ---
HPI - Abdominal Pain General Chief Complaint: Abdominal Pain Stated Complaint: abd and back pain for weeks Time Seen by Provider: 12/29/22 13:29 Source: patient Mode of arrival: ambulatory Limitations: no limitations History of Present Illness HPI narrative: Patient is a 47-year-old female who presents to the ED with report of left lower quadrant abdominal pain. Patient reports having pain for the last several weeks. She states the pain is intermittent, radiates around to her left lower back and occasionally into her pelvic region. Denies any noticeable aggravating or relieving factors to the pain. She has intermittently taken Advil for the pain with minimal improvement. Over the last 2 days, she reports pain has become more persistent, lasting longer, more frequent, which prompted her presentation. Patient reports occasional nausea, intermittent dysuria, but denies vomiting, diarrhea, hematuria, urinary frequency, urinary urgency, rectal bleeding, abnormal vaginal bleeding or discharge. Related Data Home Medications Medication Instructions Recorded Confirmed cetirizine 10 mg tablet 10 mg PO DAILY PRN Allergy Symptoms 02/12/22 08/25/22 fluticasone propionate 50 1 spray intranasal Q12H 02/12/22 08/25/22 mcg/actuation nasal spray,suspension hydrochlorothiazide 12.5 mg tablet 12.5 mg PO DAILY 02/12/22 08/25/22 losartan 50 mg tablet 50 mg PO DAILY 02/12/22 08/25/22 meclizine 25 mg tablet 25 mg PO Q4-6H PRN Motion Sickness 02/12/22 08/25/22 sertraline 100 mg tablet 100 mg PO DAILY 02/12/22 09/07/22 ergocalciferol (vitamin D2) 1,250 1,250 mcg PO WEEKLY 08/25/22 08/25/22 mcg (50,000 unit) capsule (Vitamin D2) Allergies Allergy/AdvReac Type Severity Reaction Status Date / Time No Known Allergies Allergy Verified 12/29/22 13:50 Review of Systems Review of Systems: CONSTITUTIONAL: Denies fever, chills, or sweats. CARDIOVASCULAR: Denies chest pain. RESPIRATORY: Denies dyspnea. GASTROINTESTINAL: See HPI. GENITOURINARY: See HPI. SKIN: Denies rash or itching. MUSCULOSKELETAL: See HPI. All systems reviewed & are unremarkable except as noted in HPI and below PMFSH Past Medical History Medical History Anxiety Arachnoid cyst Depression HTN (hypertension) Obesity HIPOLITO on CPAP Surgical History Surgical History H/O brain surgery Social History Social History Smoking packs per day: 1 Smoking cigarettes per day: 20.0 Years smoked: 12 Smoking pack-years: 12.00 Smoking status: Former smoker Tobacco type: cigarettes Smoking end date: 01/24/22 Alcohol intake: current Alcohol use details: RARE Substance use: never Substance use type: does not use Lack of Transportation: No Lack of Food: Never True Current Housing: I Have Housing Concerned About Future Housing: No Difficulty Paying Gas/Electric Bills: No Difficulty Paying for Meds: No Currently Unemployed: No Education: Associate Degree Difficulty w/ Childcare or Family Care: No Living arrangements: with roommate(s) Spiritual care concerns: No Exam Narrative: GENERAL: Well appearing, obese, non-toxic, in no acute distress. HEAD: Normocephalic, atraumatic. NECK: Supple. No adenopathy, no masses. RESPIRATORY: Airway patent, respirations nonlabored. Clear to auscultation bilaterally, no rales, rhonchi, wheezing. CARDIOVASCULAR: Regular rate and rhythm without murmurs, rubs, or gallops. Radial pulses 2+ and equal bilaterally. ABDOMINAL: Soft, very minimal discomfort in left lower quadrant, left pelvic region. Nondistended, no hepatosplenomegaly. Normoactive BS. MUSCULOSKELETAL: Moves all extremities. Strength/ROM intact without gross deformities. Mild discomfort in left lumbosacral region. No midline spinal tenderness. SKIN: Warm, dry, normal
== END 2022-12-29 16:23 | disposition home or self-care (01) ==
PROVIDERS: Emergency Provider Physician Assistant; PCP Family Medicine
DX: N83.202 Unspecified ovarian cyst, left side (principal); I10 Essential (primary) hypertension; G47.33 Obstructive sleep apnea (adult) (pediatric); E66.9 Obesity, unspecified; Z68.39 Body mass index [BMI] 39.0-39.9, adult; F32.A Depression, unspecified; F41.9 Anxiety disorder, unspecified; Z87.891 Personal history of nicotine dependence
CPT/HCPCS: 36415; 74177; 76830; 76856; 80053; 81001; 81025; 83690; 85025; 99284; Q9967

== ENCOUNTER 2023-03-24 16:25 | Outpatient (CLI) | payer OTHER, SELFPAY ==
--- NOTE | ~2023-03-24 | MM_ITS ---
EXAMINATION: MM screening ketan BI w harris HISTORY: Screening mammogram TECHNIQUE: Craniocaudal and mediolateral oblique 3-D tomosynthesis images were obtained and synthetic 2-D images were generated. CAD analysis was submitted and interpreted. COMPARISON: 01/23/2019, 01/11/2019, 02/11/2014 BREAST PARENCHYMAL COMPOSITION:The breasts are almost entirely fatty FINDINGS: No suspicious mass, calcification, or architectural distortion are identified in either tin ast to suggest malignancy. There has been no suspicious interval change. IMPRESSION: No mammographic evidence of malignancy. Recommend routine screening mammography in one year. BI-RADS Category 1: Negative Reviewed, dictated and finalized at location .
== END 2023-03-24 16:26 | disposition home or self-care (01) ==
PROVIDERS: PCP Family Medicine; Visit Provider Nurse Practitioner Adult Health
DX: Z12.31 Encounter for screening mammogram for malignant neoplasm of breast (principal)
CPT/HCPCS: 77063; 77067

== ENCOUNTER 2023-04-06 00:12 | Day surgery (SDC) | payer OTHER, SELFPAY ==
[2023-03-28 12:00] VITALS: BMI 39.4
--- NOTE | 2023-03-28 12:05 | PC.NURSE ---
Report to the Outpatient Waiting Room, entrance under the green pavilion located off [facility], at time 9:00 on date 04/06/23. Planned Procedure Time: 11:00. Time changes happen often and if your time is changed the preop area will call you the afternoon before. - You and your visitor will be asked to self-screen and do not enter if you have any COVID symptoms. - A mask is optional within the hospital at this time. Patients may have clear liquids (water, carbonated beverages, clear teas, apple juice) until 3 hours prior to surgery with a maximum of 20 ounces. - No food from midnight until time of surgery Take the following medications with a SIP of water the morning of surgery: KEPPRA, SERTRALINE DO NOT STOP ANY OF YOUR OTHER PRESCRIPTION MEDICATIONS PRIOR TO SURGERY ?EXCEPT THE FOLLOWING Medications to discontinue per physician: VITAMINS/SUPPLEMENTS Date to take last dose: 04/02/23 Please no make-up, nail burmese, hairspray, perfume, deodorant, or body powder the day of surgery. No jewelry (including any body piercings) or valuables the day of surgery, leave them at home. Please take a shower or bath the night before, or the morning of, surgery with an antibacterial soap. Wear comfortable, loose fitting clothing. - Jewelry must be removed prior to entering the operating room. Rings and piercings that are not removed may be cut off. - The hospital will not accept responsibility for valuables. - Please leave all valuables, including medications, at home the day of surgery. If you are going home after surgery, a licensed transporter driver must drive you home. - NO public transportation without another adult if you receive anesthesia. - We recommend that an adult stay with you for 24 hours following discharge. - We also recommend that you do not drive, make important decision, drink alcoholic beverages, or take any drugs that were not prescribed by your health care provider for at least 24 hours after your discharge time. Follow any additional instructions given to you from your surgeon. If you or anyone in your household have experienced Covid symptoms in the past week, please notify your surgeon or the nurse liaison at the phone number below for possible testing. Telephone instructions given to PT - LESLEY MONTERO and asked if any additional questions and then verbalized understanding. Patient advised to call surgeon office or pre surgery nurse liaison [phone] if any additional questions.
[2023-04-06] VITALS (10 sets, daily range): BP systolic 111–150; BP diastolic 75–101; PULSE 56–88; RESP 13–20; TEMP 36.2–36.6; O2SAT 95–100
--- NOTE | 2023-04-06 05:53 | ECG_ITS ---
Measurements Intervals [place] Rate: 52 P: 15 WI: 152 QRS: -3 QRSD: 102 T: 14 QT: 423 QTc: 394 Interpretive Statements SINUS BRADYCARDIA BORDERLINE T WAVE ABNORMALITY- INFERIOR LEADS BASELINE WANDER- I, II, AVR, AVL, AVF, V3 BORDERLINE ECG COMPARED TO ECG 02/04/2022 14:45:58 SINUS BRADYCARDIA NOW PRESENT Electronically Signed On 04-06-2023 9:33:45 CDT by Jason Park D.O.
--- NOTE | 2023-04-06 07:22 | WPDHPUPDATE1 ---
History and Physical Update Update Date/Time: 04/06/23 07:22 History and Physical has been reviewed, including an updated exam of the patient. There are NO changes in the patient's condition. Risks, benefits, and alternatives have been discussed and questions answered. Patient agrees to proceed with procedure.
[2023-04-06] MEDS: ACETAMINOPHEN 500 MG TABLET 1000 MG PO (08:03)
[2023-04-06] MEDS: KETOROLAC 15 MG/ML VIAL (*BKC) IV PUSH (08:03)
[2023-04-06] MEDS: LACTATED RINGERS 1,000 ML 30 ML IV CONT (08:03)
[2023-04-06 08:39] LABS: Anion Gap -1 mmol/L (8-16); Blood Urea Nitrogen 17 mg/dL (7-17); Calcium 8.6 mg/dL (8.4-10.2); Carbon Dioxide 34 mmol/L (22-30); Chloride 104 mmol/L (98-107); Estimated CRCL calculation 115 ml/min; Estimated Glomerular Filt Rate > 60; Glucose 101 mg/dL (65-110); Potassium 4.2 mmol/L (3.4-5.0); Sodium 137 mmol/L (137-145)
--- NOTE | 2023-04-06 08:40 | WPDANESEPPF ---
Anes - Initial Pre Proc Eval Procedure: Operation Date: 04/06/23 09:30 Proposed Procedures p Laparoscopic Left Ovarian Cystectomy - Shanae Santos MD Date/Time: 04/06/23 08:40 Surgeon: Shanae Santos MD Pre Op Diagnosis: Lt Ovarian Cyst Patient Data Age: 48 Gender: F Height: 1.63 m Weight: 106.4 kg Last Vital Signs Temp 98 F 04/06/23 07:22 Pulse 66 04/06/23 07:22 Resp 16 04/06/23 07:22 BP 142/94 H 04/06/23 07:22 Pulse Ox 98 04/06/23 07:22 O2 Del Method Room Air 04/06/23 07:22 Allergies Allergy/AdvReac Type Severity Reaction Status Date / Time No Known Allergies Allergy Verified 03/28/23 11:59 Home Medications Medication Instructions Recorded Confirmed Type cetirizine 10 mg tablet 10 mg PO DAILY PRN Allergy Symptoms 02/12/22 03/28/23 History fluticasone propionate 50 1 spray intranasal Q12H 02/12/22 03/28/23 History mcg/actuation nasal spray,suspension hydrochlorothiazide 12.5 mg tablet 12.5 mg PO DAILY 02/12/22 03/28/23 History losartan 50 mg tablet 50 mg PO DAILY 02/12/22 03/28/23 History meclizine 25 mg tablet 25 mg PO Q4-6H PRN Motion Sickness 02/12/22 03/28/23 History sertraline 100 mg tablet 100 mg PO DAILY 02/12/22 03/28/23 History ergocalciferol (vitamin D2) 1,250 1,250 mcg PO WEEKLY 08/25/22 03/28/23 History mcg (50,000 unit) capsule (Vitamin D2) levetiracetam 750 mg tablet See Rx Instructions .Route 02/07/23 03/28/23 Rx .COMPLEX #60 tabs Laboratory Tests 04/06/23 08:20 Sodium 137 mmol/L (137-145) Potassium 4.2 mmol/L (3.4-5.0) Chloride 104 mmol/L (98-107) Carbon Dioxide 34 H mmol/L (22-30) Anion Gap -1 L mmol/L (8-16) BUN 17 mg/dL (7-17) Creatinine 0.60 L mg/dL (0.7-1.0) Estim Creat Clear Calc 115 ml/min Estimated GFR > 60 (59 - ) Glucose 101 mg/dL (65-110) Calcium 8.6 mg/dL (8.4-10.2) Patient hx anesthesia problems: none Family hx anesthesia problems: none Results Review: All pre-operative results and documents have been reviewed as part of the pre-operative evaluation. [facility] Past Medical History Medical History Anxiety Arachnoid cyst Depression HTN (hypertension) Obesity HIPOLITO on CPAP Surgical History Surgical History H/O brain surgery Social History Social History Smoking packs per day: 0.5 Smoking cigarettes per day: 10.0 Years smoked: 12 Smoking pack-years: 6.00 Smoking status: Former smoker Tobacco type: cigarettes Smoking end date: 09/26/21 Alcohol intake: current Drinks per week: 5 Alcohol use details: RARE Substance use: never Substance use type: does not use Lack of Transportation: No Lack of Food: Never True Current Housing: I Have Housing Concerned About Future Housing: No Difficulty Paying Gas/Electric Bills: No Difficulty Paying for Meds: No Currently Unemployed: No Education: Associate Degree Difficulty w/ Childcare or Family Care: No Living arrangements: with roommate(s) Spiritual care concerns: No Anes - Eval Final PreProcedure Day of Procedure 04/06/23 08:40 Patient weight: morbidly obese Heart: regular rate and rhythm Lungs: clear to auscultation Airway: Mallampati scale class III Neurological: alert and oriented Last oral intake: >/= 8 hours ASA classification: III Emergent: no Anesthetic plan: proceed Anesthesia type and monitoring: general ETT and standard monitoring Results Review: All pre-operative results and documents have been reviewed as part of the pre-operative evaluation. Informed Consent: The patient's anesthetic plan and its attendant risks and benefits were discussed with the patient/family/POA. Questions were solicited and answers provided to the satisfaction of the patient/famil
--- NOTE | 2023-04-06 10:23 | W.PM.PROC2 ---
Procedure Note - Detailed Date of Procedure 04/06/23 Pre-op Diagnosis Lt Ovarian Cyst Post-op Diagnosis Same Procedure Performed Right ovarian cystectomy Surgeon Shanae Santos MD Anesthesia General Indications Pelvic pain Findings to moderate-sized right ovarian cyst, possible collapsed cyst of the left ovary, otherwise normal pelvic anatomy Description of Procedure The patient was taken to the operating room. She was prepped and draped in the dorsal lithotomy position after induction general anesthesia. A 5 mm incision was made with a scalpel on the abdominal skin in the left upper quadrant of the abdomen. A 5 mm trocar was inserted into the intra-abdominal cavity under direct visualization the scope. In the same fashion a 5 mm left lower quadrant trocar was inserted and a 5 mm infraumbilical trocar was inserted. right ovarian cystectomy was performed. This was done using the LigaSure cautery and monopolar cautery. cyst dome capsules were removed. open surfaces of the cyst were cauterized. Some of the cyst capsules were removed from the cut open services. The pelvis was irrigated. The pneumoperitoneum was reduced. The trocars were removed. Skin was closed with subcuticular 4 micro. The patient's incisions were covered with Dermabond. She was taken recovery room in stable condition. Sponge lap and needle counts were correct x2. Estimated Blood Loss -25.0 Urine Output -75.0 Complications No immediate complications Condition Stable Disposition Same day
== END 2023-04-06 12:32 | disposition home or self-care (01) ==
PROVIDERS: Anesthesiology; PCP Family Medicine; Visit Provider Obstetrics & Gynecology
PROC: (CPT 49320; principal; 2023-04-06 09:30)
DX: N83.01 Follicular cyst of right ovary (principal); I10 Essential (primary) hypertension; F32.A Depression, unspecified; F41.9 Anxiety disorder, unspecified; G47.33 Obstructive sleep apnea (adult) (pediatric); E66.01 Morbid (severe) obesity due to excess calories; Z68.41 Body mass index [BMI] 40.0-44.9, adult; Z87.891 Personal history of nicotine dependence
CPT/HCPCS: 58662; 36415; 80048; 88305; 93005; A9270; J0330; J1100; J1170; J1885; J2250; J2405; J2704; J2710; J3010; J7030; J7120

== ENCOUNTER 2023-05-21 07:11 | Outpatient (CLI) | payer OTHER, SELFPAY ==
[2023-05-21 07:34] LABS: Basophils Absolute Auto 0.1 K/mm3 (0.0-0.1); Eosinophils Absolute Auto 0.1 K/mm3 (0-0.3); Eosinophils Percent Auto 2.3 % (0-4.4); Hematocrit 37.8 % (37.0-47.0); Hemoglobin 11.7 g/dL (12.0-15.0); Immature Granulocyte Absolute 0.01 K/mm3 (0.00-0.031); Immature Granulocyte Percent A 0.2 % (0-0.5); Lymphocytes Absolute Auto 3.03 K/mm3 (0.9-3.2); Lymphocytes Percent Auto 50.8 % (18.3-44.2); Mean Corpuscular Hemoglobin 26.8 pg (26-34); Mean Corpuscular Volume 86.5 fl (80-100); Mean Platelet Volume 9.2 fl (7.4-10.4); Monocytes Absolute Auto 0.4 K/mm3 (0.1-0.6); Neutrophils Absolute Auto 2.3 K/mm3 (1.3-6.7); Neutrophils Percent Auto 38.7 % (45.5-73.1); Platelet Count Result 301 k/mm3 (150-375); Red Blood Count 4.37 M/mm3 (4.2-5.4); Red Cell Distribution Width 13.5 % (11.5-14.5)
[2023-05-21 07:44] LABS: Alanine Aminotransferase 28 U/L (6-35); Albumin Level 4.1 g/dL (3.5-5.1); Alkaline Phosphatase 38 U/L (38-126); Anion Gap 7 mmol/L (8-16); Aspartate Amino Transferase 26 U/L (14-36); Bilirubin,Total 0.4 mg/dL (0.2-1.3); Blood Urea Nitrogen 21 mg/dL (7-17); Calcium 8.9 mg/dL (8.4-10.2); Carbon Dioxide 29 mmol/L (22-30); Chloride 103 mmol/L (98-107); Estimated Glomerular Filt Rate > 60; Glucose 106 mg/dL (65-110); Potassium 4.3 mmol/L (3.4-5.0); Sodium 139 mmol/L (137-145)
[2023-05-21 08:15] LABS: Thyroid Stimulating Hormone 0.603 uIU/mL (0.465-4.680)
[2023-05-25 04:39] LABS: Triiodothyronine T3 Free 2.8 pg/mL (2.3-4.2)
== END 2023-05-21 07:12 | disposition home or self-care (01) ==
PROVIDERS: PCP Family Medicine; Visit Provider Nurse Practitioner Adult Health
DX: F41.1 Generalized anxiety disorder (principal); I10 Essential (primary) hypertension; R00.1 Bradycardia, unspecified
CPT/HCPCS: 36415; 80053; 84439; 84443; 84481; 85025

== ENCOUNTER 2024-05-22 14:25 | Outpatient (CLI) | payer OTHER, SELFPAY ==
--- NOTE | ~2024-05-22 | MM_ITS ---
EXAMINATION: MM screening ketan BI w harris HISTORY: Screening TECHNIQUE: Craniocaudal and mediolateral oblique 3-D tomosynthesis images were obtained and synthetic 2-D images were generated. CAD analysis was submitted and interpreted. COMPARISON: Comparison to multiple prior studies sequentially, with oldest reviewed study dated 01/11. BREAST PARENCHYMAL COMPOSITION: There are scattered areas of fibroglandular density. FINDINGS: There is no evidence of suspicious mass, calcification, or architectural distortion to sugg est malignancy in either breast. There has been no suspicious interval change. IMPRESSION: 1. No mammographic evidence of malignancy. 2. Recommend routine screening mammography in one year. BI-RADS Category 1: Negative Reviewed, dictated and finalized at location B.
== END 2024-05-22 14:26 | disposition home or self-care (01) ==
LOC: ANHIMG 14:28
PROVIDERS: PCP Family Medicine; Visit Provider Obstetrics & Gynecology
DX: Z12.31 Encounter for screening mammogram for malignant neoplasm of breast (principal)
CPT/HCPCS: 77063; 77067